=== PATIENT | female | born 1990 | race African-American/Black ===

== ENCOUNTER 2018-01-20 16:55 | Emergency (ER) | payer OTHER ==
[2018-01-20] MEDS: CLINDAMYCIN 150 MG CAP PO (19:30)
== END 2018-01-20 20:02 | disposition home or self-care (01) ==
LOC: M ED 16:55
DX: S62.660B Nondisplaced fracture of distal phalanx of right index finger, initial encounter for open fracture (principal); W23.0XXA Caught, crushed, jammed, or pinched between moving objects, initial encounter; Y92.139 Unspecified place military base as the place of occurrence of the external cause; Y99.1 Military activity; Z88.8 Allergy status to other drugs, medicaments and biological substances; Z88.1 Allergy status to other antibiotic agents; Z88.5 Allergy status to narcotic agent
CPT/HCPCS: 73140

== ENCOUNTER 2018-02-07 19:24 | Emergency (ER) | payer OTHER ==
[2018-02-07] MEDS: dexameTHASONE 4 MG/ML 1ML VIAL (J1100) PO (21:00)
== END 2018-02-07 21:59 | disposition home or self-care (01) ==
LOC: M ED 19:24
DX: J04.0 Acute laryngitis (principal); Z88.1 Allergy status to other antibiotic agents; Z88.5 Allergy status to narcotic agent; Z88.6 Allergy status to analgesic agent
CPT/HCPCS: J1100

== ENCOUNTER 2019-03-03 17:58 | Emergency (ER) | payer OTHER ==
[~2019-03-03] VITALS: Ht 177.8 cm; Wt 81.8 kg
[~2019-03-03 17:58] MED LIST: CLEO300C2 PO; MAGICMW MT
[2019-03-03 17:59] VITALS: BP 128/70
[2019-03-03] MEDS ORDERED: HYDR25OIN TOP (20:14)
== END 2019-03-03 20:22 | disposition home or self-care (01) ==
LOC: M ED 17:58
DX: L25.9 Unspecified contact dermatitis, unspecified cause (principal); Z88.8 Allergy status to other drugs, medicaments and biological substances; Z88.1 Allergy status to other antibiotic agents; Z88.5 Allergy status to narcotic agent